=== PATIENT | female | born 1960 | race Caucasian/White ===

== ENCOUNTER 2016-06-20 10:11 | Inpatient (IN) | payer OTHER ==
[~2016-06-20] VITALS: Ht 172.7 cm; Wt 92.1 kg
[2016-07-15] MEDS ORDERED: LACTATED RINGER'S 1000 ML IV SCH (06:00)
[2016-07-15] MEDS ORDERED: ceFAZolin 2 GM PREMIX 50 ML IV SCH (06:00)
[2016-07-15] MEDS ORDERED: POVIDONE IODINE 5% (ANTISEPSIS KIT) 4 APPLICATIONS TOPICAL ONE (06:00)
[2016-07-15] MEDS ORDERED: SODIUM CHLORID 0.9% 500 ML IV SCH (06:00)
[2016-07-15] MEDS ORDERED: CHLORHEXIDINE GLUCONATE 2 % 1 PACK (2 CLOTHS) TOP ONE (06:00)
[2016-07-15] MEDS ORDERED: METOPROLOL TARTRATE 25 MG TAB PO PRN (06:15)
[2016-07-15] MEDS ORDERED: INSULIN HUMAN REGULAR 1,000 UNITS/10 ML VIAL SQ PRN (06:15)
[2016-07-15 06:29] VITALS: BP 109/69; PULSE 72; RESP 16; TEMP 98; O2SAT 97
[2016-07-15] MEDS ORDERED: SUGAMMADEX SODIUM 200 MG/2 ML VIAL IV PUSH ONE ×2 (07:02)
[2016-07-15] MEDS ORDERED: ACETAMINOPHEN 1000 MG/100 ML VIAL IV ONE (07:02)
[2016-07-15] MEDS ORDERED: ARTIFICIAL TEARS OPTH OINT 3.5 APPLIC/3.5 GM TUBO ONE (07:21)
[2016-07-15] MEDS ORDERED: MIDAZOLAM HCL 2 MG/2 ML VIAL ONE (07:21)
[2016-07-15] MEDS ORDERED: FAMOTIDINE 20 MG/2 ML VIAL ONE (07:21)
[2016-07-15] MEDS ORDERED: KETAMINE HCL 500 MG/5 ML VIAL ONE (10:31)
[2016-07-15] MEDS: LACTATED RINGER'S 1000 ML INJ 1,000 ML IV SCH ×2 (10:37→23:57)
[2016-07-15] MEDS ORDERED: DO NOT ADM ANY ANTICOAGULANT DRUGS XX PRN (10:39)
[2016-07-15] MEDS ORDERED: *MEPERIDINE 25 MG INJ VIAL PERIprocedural Use ONLY ONE (10:44)
[2016-07-15] MEDS ORDERED: LORazepam 0.5 MG TAB PO PRN (10:45)
[2016-07-15] MEDS ORDERED: fentaNYL CITRATE 250 MCG/5 ML AMP ONE ×2 (10:45)
[2016-07-15] MEDS ORDERED: diphenhydrAMINE HCL 25 MG CAP PO PRN ×2 (10:45)
[2016-07-15] MEDS ORDERED: NALOXONE HCL 0.4 MG/ML AMP IV PRN (10:45)
[2016-07-15] MEDS ORDERED: MORPHINE SULFATE 30 MG/30 ML PCA IV SCH (10:45)
[2016-07-15] MEDS ORDERED: ONDANSETRON ODT 4 MG TAB SL PRN (10:45)
[2016-07-15] MEDS ORDERED: diphenhydrAMINE HCL 50 MG/ML VIAL IV PRN ×2 (10:45)
[2016-07-15] MEDS ORDERED: SODIUM CHLORIDE 0.9% FLUSH 5 ML FLUSH IVF PRN (10:45)
[2016-07-15] MEDS ORDERED: ONDANSETRON HCL 4 MG/2 ML VIAL IV PUSH PRN (10:45)
[2016-07-15] MEDS ORDERED: ZOLPIDEM TARTRATE 5 MG TAB PO PRN (10:45)
[2016-07-15] MEDS ORDERED: oxyCODONE/ACETAMINOPHEN 10 MG/325 MG TAB PO PRN (10:45)
[2016-07-15] MEDS ORDERED: oxyCODONE/ACETAMINOPHEN 5 MG/325 MG TAB PO PRN (10:45)
--- NOTE | 2016-07-15 10:46 | HHI.PR ---
Immediate Post Op Note Procedure Date: Jul 15, 2016 Pre Op Diagnosis: (1) Postmenopausal bleeding (2) Enlarged uterus (3) Intramural leiomyoma of uterus Post Op Diagnosis: (1) S/P total abdominal hysterectomy and bilateral salpingo-oophorectomy (2) Postmenopausal bleeding (3) Enlarged uterus (4) Intramural leiomyoma of uterus Surgeon: Ora Amezcua Credit Investigator(s): [facility] staff Procedure: exam under anesthesia, total abdominal hysterectomy, bilateral salpingo- oophorectomy Findings: enlarged fibroid uterus approximately 16 week size, very broad, normal appearing adnexa bilaterally, normal appearing cervix Additional Information: frozen section analysis showed benign appearing leiomyoma; due to postmenopausal status peritoneal fluid was sent for cytology to permanent as precaution Complications: none Specimen(s) removed: uterus, cervix, left fallopian tube, left ovary, right fallopian tube, right ovary; peritoneal washings Estimated blood loss: 300 mL Anesthesia: General Drains: None Fluids: 2000 mL IVF Patient to: PACU Patient Condition: Good Ora Amezcua MD Jul 15, 2016 10:46
[2016-07-15] MEDS ORDERED: METOCLOPRAMIDE HCL 10 MG/2 ML VIAL IV PUSH PRN (11:00)
[2016-07-15] MEDS: KETOROLAC TROMETHAMINE 30 MG/ML (IVP) VIAL IV PUSH SCH ×3 (11:00→22:37)
[2016-07-15] MEDS ORDERED: *morphine SULFATE 8 MG/ML PERIprocedure ONLY ONE (11:06)
[2016-07-15] MEDS ORDERED: PROPOFOL 200 MG/20 ML AMP IV ONE (11:32)
[2016-07-15] MEDS ORDERED: NEOSTIGMINE 3 MG/3 ML SYR IV ONE (11:32)
[2016-07-15] MEDS ORDERED: ONDANSETRON HCL 4 MG/2 ML VIAL IV PUSH ONE (11:32)
[2016-07-15] MEDS ORDERED: LACTATED RINGER'S 1000 ML INJ 2,000 ML IV ONE (11:32)
[2016-07-15 12:15] VITALS: BP 142/75; PULSE 72; RESP 16; TEMP 97.5; O2SAT 95
[2016-07-15] MEDS: PCA - TOTAL MG MORPHINE DELIVERED PER SHIFT SCH ×2 (14:00→22:00)
[2016-07-15] MEDS: ACETAMINOPHEN 1000 MG/100 ML VIAL IV SCH ×2 (14:28→21:03)
[2016-07-15 15:55] VITALS: O2SAT 95
[2016-07-15 16:00] VITALS: BP 113/70; PULSE 67; RESP 16; TEMP 98; O2SAT 98
[2016-07-15 20:00] VITALS: BP 117/59; PULSE 61; RESP 16; TEMP 97.5; O2SAT 97
[2016-07-15] MEDS: DOCUSATE SODIUM 100 MG CAP PO SCH (21:02)
[2016-07-15] MEDS: SODIUM CHLORIDE 0.9% FLUSH 5 ML FLUSH IVF SCH (21:05)
[2016-07-15 21:28] VITALS: O2SAT 95
[2016-07-16] VITALS: BP 108/57; PULSE 67; RESP 16; TEMP 98.2; O2SAT 95
[2016-07-16] MEDS: ACETAMINOPHEN 1000 MG/100 ML VIAL IV SCH ×2 (02:14→09:25)
[2016-07-16 05:00] VITALS: BP 117/61; PULSE 68; RESP 16; TEMP 97.6; O2SAT 96
[2016-07-16] MEDS: KETOROLAC TROMETHAMINE 30 MG/ML (IVP) VIAL IV PUSH SCH (05:03)
[2016-07-16] MEDS: PCA - TOTAL MG MORPHINE DELIVERED PER SHIFT SCH (05:20)
[2016-07-16] MEDS ORDERED: MORPHINE SULFATE 4 MG/ML INJ ONE (06:01)
[2016-07-16 06:52] LABS: BASOPHIL % 0.3 % (0.0-2.0); EOSINOPHIL % 0.2 % (0.0-4.0); HEMATOCRIT 37.2 % (35.0-46.0); HEMO FLAGS DIFF FINAL; LYMPH % 23.8 % (9.0-44.0); LYMPHOCYTE # 1.8 TH/MM3 (1.0-4.8); MEAN CELL VOLUME 91.3 FL (80.0-100.0); MONO % 10.1 % (0.0-8.0); NEUT % 65.6 % (16.0-70.0); PLATELET COUNT 194 TH/MM3 (150-450); RED BLOOD COUNT 4.08 MIL/MM3 (4.00-5.30); RED CELL DISTRIBUTION WIDTH 13.7 % (11.6-17.2); WHITE BLOOD COUNT 7.6 TH/MM3 (4.0-11.0)
[2016-07-16] MEDS: SODIUM CHLORIDE 0.9% FLUSH 5 ML FLUSH IVF SCH (07:29)
--- NOTE | 2016-07-16 07:29 | HHI.DS ---
Discharge Summary Admission Date Jul 15, 2016 at 05:25 Discharge Date: Jul 16, 2016 Admitting Diagnosis postmenopausal bleeding, enlarged fibroid uterus (1) S/P total abdominal hysterectomy and bilateral salpingo-oophorectomy Diagnosis: Principal (2) Postmenopausal bleeding Diagnosis: Principal (3) Enlarged uterus Diagnosis: Principal (4) Intramural leiomyoma of uterus Diagnosis: Principal Procedures exam under anesthesia, total abdominal hysterectomy, bilateral salpingo- oophorectomy, pelvic washings Brief History 56 who presented to office with history of vaginal bleeding on and off spotting or like a regular cycle over the past few months, previously menopausal since age 50. Never on HRT. Had not been under the care of any physician since of last child in 1983. No pain, no bloating, no unintentional weight gain or loss, no associated symptoms. CBC/BMP: 07/16/16 0556 07/16/16 0556 Significant Findings Laboratory Tests Test 07/16/16 05:56 Monocytes (%) (Auto) 10.1 % (0.0-8.0) Estimat Glomerular Filtration 61 ML/MIN (>89) Rate PE at Discharge NAD A&Ox3 CTA b/l no wheeze RRR no murmur Abd soft NTND +BS Incision c/d/i steri-strips in place Ext no c/c/e x 4 pad dry no bleeding Hospital Course Pt had uncomplicated intraoperative course with large 16 wk size broad fibroid uterus removed abdominally with adnexa & cervix. Initial reading intraoperatively was benign leiomyoma on frozen section. Pt did well overnight POD#0 and by POD#1 was ambulating, voiding, tolerating diet. Once pt's pain was well controlled on oral medications and she had passed flatus she was discharged to home with office follow-up. Pt Condition on Discharge: Good Discharge Disposition: Discharge Home Discharge Instructions DIET: Follow Instructions for: As Tolerated, No Restrictions Activities you can perform: Partial Weight Bearing (do not lift >5 pounds), Shower Only-No Bath, Pelvic Rest Activities to avoid: Lifting/Bending, Prolonged Standing, Strenuous Activity, Driving (for 2 weeks), Sexual Activity Ora Amezcua MD Jul 16, 2016 07:29
[2016-07-16 07:30] VITALS: O2SAT 97
[2016-07-16] MEDS ORDERED: IBUP-232 PO (07:30)
[2016-07-16] MEDS ORDERED: OXYC1TAB63 PO (07:30)
[2016-07-16] MEDS ORDERED: DOCU1CAP39 PO (07:30)
--- NOTE | 2016-07-16 07:33 | HHI.PR ---
Subjective Remarks Doing well, pain is well controlled on IV Ofirmev & Toradol, ambulated & voided this AM, wants to order breakfast. Tolerated clears overnight. Objective Vital Signs Vital Signs Date Time Temp Pulse Resp B/P Pulse Ox O2 Delivery O2 Flow Rate FiO2 07/16/16 05:20 19 07/16/16 05:00 97.6 68 16 117/61 96 07/16/16 00:00 98.2 67 16 108/57 95 07/15/16 22:00 18 07/15/16 21:28 95 Nasal Cannula 07/15/16 20:00 97.5 61 16 117/59 97 07/15/16 16:00 98.0 67 16 113/70 98 07/15/16 15:55 95 Nasal Cannula 2.00 07/15/16 14:00 16 07/15/16 12:15 97.5 72 16 142/75 95 07/15/16 11:45 98.1 68 14 124/68 100 Nasal Cannula 2 07/15/16 11:30 58 12 127/69 100 07/15/16 11:15 57 12 122/69 99 07/15/16 11:01 12 07/15/16 11:00 73 14 118/70 99 07/15/16 10:45 63 13 134/73 100 Nasal Cannula 2 07/15/16 10:37 98.0 69 12 142/78 100 Nasal Cannula 2 I/O 07/15/16 07/15/16 07/15/16 07/16/16 07/16/16 07/16/16 07:00 15:00 23:00 07:00 15:00 23:00 Intake Total 2240 ml 840 ml 790 ml Output Total 1100 ml 825 ml 650 ml 100 ml Balance 1140 ml 15 ml 140 ml -100 ml Intake Oral 240 ml 240 ml 240 ml IV Total 600 ml 550 ml Other 2000 ml Output Urine Total 500 ml 825 ml 650 ml 100 ml Estimated Blood Loss 300 ml Other 300 ml # Sanitary Pads 1 Pads 1 Pads Result Diagram: 07/16/16 0556 07/16/16 0556 Objective Remarks Chest is clear, regular rate and rhythm. Abdomen is soft and non-distended. Incision is clean and dry with steri-strips in place. Ext no CCE. A/P Assessment and Plan Post Op Day 1 Doing well Transition from IV to oral pain medications, advance diet, continue ambulation & incentive spirometer use If tolerates diet & pain well controlled on oral meds ok to d/c home today reviewed wound care at length office f/u in 2 weeks Ora Amezcua MD Jul 16, 2016 07:33
[2016-07-16 08:00] VITALS: BP 106/60; PULSE 62; RESP 16; TEMP 98.3; O2SAT 97
[2016-07-16] MEDS ORDERED: IBUPROFEN 600 MG TAB PO PRN (08:00)
[2016-07-16] MEDS ORDERED: IBUPROFEN 600 MG TAB PO SCH (09:00)
[2016-07-16] MEDS: DOCUSATE SODIUM 100 MG CAP PO SCH (09:26)
--- NOTE | 2016-07-16 10:44 | MP ---
cc: MIRZA WEBER M.D. DATE OF SURGERY 07/15/2016 DATE OF 1960 PREOPERATIVE DIAGNOSIS 1. Postmenopausal bleeding 2. Enlarged uterus 3. Intramural leiomyoma on imaging POSTOPERATIVE DIAGNOSIS 1. Postmenopausal bleeding 2. Enlarged uterus 3. Intramural leiomyoma on imaging 4. Postop day number zero. INDICATIONS Anna Leslie is a 56-year-old 2, para 2-0-0-2 who has not had any medical care from any physician since the of her last child in 1983. Over the past few months, she has noted some vaginal spotting and at times heavy period-like bleeding. She had previously been menopausal since age 50. She came to my office due to this complaint. On exam, she had an enlarged, irregularly shaped, approximately 16 weeks' size uterus. Pap and endometrial biopsy were negative. Imaging confirmed enlarged uterus with an approximately 11cm intramural fibroid noted. It was discussed with the patient that there was a possibility of underlying malignancy and she was consented for procedures as indicated with oncology notified for back up if needed. PROCEDURE PERFORMED 1. Exam under anesthesia 2. Total abdominal hysterectomy with bilateral salpingo-oophorectomy 3. Peritoneal washings sent for cytology. SURGEON Mirza Weber MD ROBOTIC WELD TECHNICIAN [place] staff TYPE OF ANESTHESIA General ESTIMATED BLOOD LOSS 300 mL IV FLUID REPLACEMENT 2000 mL URINE OUTPUT 150 mL of clear urine draining in the Jefferson bag at the end of the procedure. SPECIMEN Uterus, cervix, right fallopian tube, right ovary, left fallopian tube, left ovary and peritoneal washings for cytology. INTRAOPERATIVE FINDINGS Include a markedly enlarged 16 weeks size, globular and very broad uterus with palpable intramural fibroids, bilateral adnexa were atrophic and normal-appearing. Cervix was small 2 cm, smooth without abnormal finding. PROPHYLAXIS SCD's were on and functioning throughout the entire case. Ancef 2 grams IV was given preoperatively. COMPLICATIONS None COUNTS The sponge, lap, instrument, and needle counts correct x2 at the conclusion of the procedure. PROCEDURE IN DETAIL After reviewing the informed consent, the patient was taken to the operative suite where a time-out was performed to identify the patient, planned procedure and any known allergies to drugs or drug products. The patient was placed in dorsal supine position and general anesthesia was administered without difficulty and found to be adequate. The abdomen and perineum were prepped and draped in the normal sterile fashion. Jefferson catheter was placed using sterile technique. A Pfannenstiel's type skin incision was made with a scalpel, carried down to the underlying layer of fascia with the Bovie. The fascia was incised in the midline and the incision was extended laterally with sharp dissection using Saravia scissors. Kochers were used to elevate the superior edge of the fascial incision and rectus muscles were dissected off sharply with Saravia scissors. Kochers were then moved to the inferior aspect of fascial incision and again rectus muscles were dissected off sharply. The rectus muscles were then in the midline. The peritoneum was identified, elevated with hemostats and entered sharply with Metzenbaum scissors. Incision was extended superiorly and inferiorly with good visualization of intra-abdominal contents. Enlarged uterus was immediately noted upon entry into the peritoneal cavity as uterine fundus extended almost to the level of the umbilicus. O'Luis-O'Plunkett retractor was placed. Bowel was gently packed away from the operative field with sterile moist lap sponges. Due to the broad and globular nature of the uterus, initially visualization was difficult. With some maneuvering, eventually the right round ligament was able to be identified, doubly suture ligated, cauterized and divided allowing entry into the anterior leaf of the broad ligament. This was dissected down to create a bladder flap on the right side. A clear space was then identified in the mesosalpinx beneath the right infundibulopelvic ligament. The right fallopian tube and ovary were grasped with a Marcy clamp and elevated. The right infundibulopelvic ligament was doubly clamped, divided and doubly suture ligated with 0 Vicryl with excellent hemostasis noted. The exact procedure was then repeated on the left. Once adnexa were successfully amputated from their blood supply and bladder flap was developed bilaterally, attention was turned to securing the uterine blood supply. Curved Brenda clamps were used to in succession to secure the uterine blood supply from cornua to the level of the cervix using a clamp, cut, and suture ligate technique using 0 Vicryl along the uterine vasculature. Once the level of the uterine cervix was encountered, two curved Brenda clamps were positioned beneath the cervix, clamped, and the specimen was amputated successfully and passed off the field. Vascular pedicles were suture ligated with 0 Vicryl. The vaginal cuff was then closed in a running locking fashion with #1 Vicryl. Irrigation with suction of the pelvis was performed. Excellent hemostasis was noted. Specimen was sent for frozen section analysis and initial read by pathologist, Dr. Tompkins was reported as benign appearing leiomyomatous uterus. Additional irrigation with suction of the pelvis was performed. Hema was placed along the vaginal cuff. The retractor and moist lap sponges were removed. Peritoneum was closed in a running layer with 2-0 chromic. The fascia was closed in a running layer with #1 Vicryl. Subcutaneous tissue was irrigated copiously with warm sterile saline and a series of interrupted sutures using 2-0 chromic was used to close the subcutaneous space. Skin was then closed with 4-0 Monocryl. Excellent hemostasis was noted at every level. The skin was cleaned and dried. Steri-Strips were placed as was a standard dressing. The patient tolerated the procedure well without complication. She is now resting in the Post Anesthesia Care Unit. DISPOSITION The patient will be admitted overnight. Her estimated length of stay is one to two postoperative days. MD JUSTIN Archer/MARTY /11:54 AM /10:31 AM [facility]
[2016-07-16 12:34] VITALS: BP 122/63; PULSE 74; RESP 16; TEMP 97.9; O2SAT 96
== END 2016-07-16 13:59 | disposition home or self-care (01) | DRG 743 ==
LOC: HSDI 07-15 05:25 → EDSTATUS 07-15 07:30 → EDUNIT# 07-15 07:30 → HOCB 07-15 12:23
PROVIDERS: ADMIT Obstetrics & Gynecology; ATTEND Obstetrics & Gynecology
PROC: 0UT70ZZ Resection of Bilateral Fallopian Tubes, Open Approach (ICD-10-PCS; 2016-07-15)
PROC: 0UT90ZZ Resection of Uterus, Open Approach (ICD-10-PCS; 2016-07-15)
PROC: 0UTC0ZZ Resection of Cervix, Open Approach (ICD-10-PCS; 2016-07-15)
PROC: 0UT20ZZ Resection of Bilateral Ovaries, Open Approach (ICD-10-PCS; principal; 2016-07-15 07:26)
DX: N95.0 Postmenopausal bleeding (principal); D25.1 Intramural leiomyoma of uterus
CPT/HCPCS: 82565; 85025; 86850; 86900; 86901; 88112; 88305; 88307; 88331; 94150; J0131; J0690; J1885; J2175; J2250; J2270; J2405; J2710; J3010; J7120

== ENCOUNTER → 2016-07-09 | Outpatient (CLI) | payer OTHER ==
[~2016-07-09] MED LIST: DOCU1CAP39 PO; IBUP-232 PO; OXYC1TAB63 PO
[2016-07-09 12:19] LABS: AUTOMATED NEUTROPHIL # 3.7 TH/MM3 (1.8-7.7); BASOPHIL % 0.4 % (0.0-2.0); EOSINOPHIL # 0.1 TH/MM3 (0-0.4); EOSINOPHIL % 1.9 % (0.0-4.0); HEMATOCRIT 42.4 % (35.0-46.0); HEMO FLAGS DIFF FINAL; LYMPH % 26.1 % (9.0-44.0); LYMPHOCYTE # 1.5 TH/MM3 (1.0-4.8); MEAN CELL VOLUME 91.4 FL (80.0-100.0); MEAN CORPUSCULAR HEMOGLOBIN 30.9 PG (27.0-34.0); MEAN CORPUSCULAR HGB CONC 33.8 % (32.0-36.0); MONO % 8.8 % (0.0-8.0); NEUT % 62.8 % (16.0-70.0); PLATELET COUNT 240 TH/MM3 (150-450); RED BLOOD COUNT 4.65 MIL/MM3 (4.00-5.30); RED CELL DISTRIBUTION WIDTH 13.5 % (11.6-17.2); WHITE BLOOD COUNT 5.9 TH/MM3 (4.0-11.0)
[2016-07-09 12:23] LABS: BLOOD, URINE NEG (NEG); GLUCOSE,URINE NEG (NEG); KETONE, URINE NEG (NEG); NITRITE,URINE NEG (NEG); SQUAMOUS EPITHELIAL CELL URINE <1 /hpf (0-5); URINE COLOR YELLOW (YELLW/STRAW)
[2016-07-09 12:50] LABS: BICARBONATE 28.7 MEQ/L (21.0-32.0); POTASSIUM 4.3 MEQ/L (3.5-5.1)
--- NOTE | 2016-07-09 13:01 | RADRPT ---
EXAM DATE/TIME: 07/09/2016 12:37 [place] COMPARISON: No previous studies available for comparison. INDICATIONS : Evaluate for pneumothorax, pneumonia, or communicable disease. Preop chest for hysterectomy on 7. No chest complaints, no chest surgery MEDICAL HISTORY : None. SURGICAL HISTORY : None. ENCOUNTER: Initial ACUITY: 1 day PAIN SCORE: 0/10 LOCATION: Bilateral chest FINDINGS: PA and lateral views of the chest demonstrate the lungs to be symmetrically aerated without evidence of mass, infiltrate or effusion. The cardiomediastinal contours are unremarkable. Osseous structure s are intact. CONCLUSION: No acute disease. Luther Jean-Baptiste MD on July 09, 2016 at 12:59 Board Certified Radiologist. This report was verified electronically.
== END ==
LOC: CPRE 11:37
PROVIDERS: ATTEND Obstetrics & Gynecology
DX: Z01.812 Encounter for preprocedural laboratory examination (principal); D25.9 Leiomyoma of uterus, unspecified
CPT/HCPCS: 36415; 71020; 80048; 81001; 84703; 85025